=== PATIENT | male | born 1930 | race Caucasian/White ===

== ENCOUNTER 2017-01-22 13:24 | Inpatient (IN) ==
--- NOTE | 2017-01-22 14:07 | Diag Imaging Result Doc PS360 ---
EXAM: CT HEAD W/O CONTRAST HISTORY: new onset psychosis TECHNIQUE: CT brain without contrast. Dose reduction protocol. COMPARISON: None. FINDINGS: No parenchymal hemorrhage. No epidural or subdural hematoma. No subarachnoid hemorrhage. No mass identified on this noncontrasted exam. No hydrocephalus. There is diffuse atrophy with mild chronic microvascular ischemic changes. No sinus opacification. IMPRESSION: 1.No hemorrhage 2.Atrophy with chronic microvascular ischemic changes Electronically signed by Donaldo Chan 01/22/2017 2:05 PM
--- NOTE | 2017-01-22 14:15 | Diag Imaging Result Doc PS360 ---
EXAM: CHEST-2 VIEWS HISTORY: AMS TECHNIQUE: PA and lateral chest COMMENT: The inspiration is suboptimal. There is no evidence of acute cardiac or pulmonary disease and no previous studies are available for comparison. There is a pacemaker on the left. The heart size is at the upper limits of normal. IMPRESSION: Borderline cardiomegaly. No evidence of acute disease. Electronically signed by Zhou Valles 01/22/2017 2:13 PM
[2017-01-22 16:52] LABS: MANUAL DIFF NEEDED? NO
[2017-01-22 16:53] LABS: BASO% 0.2 % (0.0-0.8); EOS# 0.08 X1000 (0.0-0.7); EOS% 0.9 % (0.0-10.0); HEMATOCRIT 42.4 % (42.0-52.0); HEMOGLOBIN 14.2 g/dL (14.0-18.0); IMM GRAN# 0.04 X1000 (0.0-0.04); IMM GRAN% 0.4 % (0.0-0.5); LYMPH# 1.39 X1000 (1.2-3.4); LYMPH% 14.8 % (20.5-51.1); MCH 31.6 PG (27-31); MCHC 33.5 g/dL (33-37); MCV 94.2 FL (81-99); MONO# 0.82 X1000 (0.11-0.59); MONO% 8.7 % (1.7-9.3); MPV 11.5 FL (7.4-10.4); PLT 181 X1000 (130-400)
[2017-01-22 17:11] LABS: ALBUMIN 3.6 g/dL (3.5-5.0); CALCIUM 9.1 mg/dL (8.8-10.2); MAGNESIUM 2.2 mg/dL (1.5-2.7); TOTAL BILIRUBIN 2.08 mg/dL (0.20-1.00); TOTAL PROTEIN 7.3 g/dL (6.3-8.3)
[2017-01-22 17:30] LABS: FREE T4 1.27 ng/dL (0.93-1.70)
--- NOTE | 2017-01-22 17:57 | PROVIDER DOCUMENTATION ---
This chart was entered by Ayush Martinez Scribe, acting as scribe for Courtney De La Torre MD. HPI-General Adult - General Source: patient - History of Present Illness -Gen Adult Nature of Presenting Problems: patient is a 86 y /o M that presents to the ER for evaluation. reports patient having dementia, gradual decline past two years, Worse recently. She is having issues with him getting worse and unable to care for himself. No recent infection, no anger outburst. Just slowly forgetting things people. Last night he slept in floor Location of Pain/Injury: reports: none Pain Radiation: reports: no radiation Quality of Pain: reports: none Severity: reports: moderate Onset/Duration: reports: gradual, other (2 years) Timing: reports: still present, getting worse (past few months, especially last day) Context/Activities at Onset: reports: none Modifying Factors: improves with: nothing Associated Symptoms: denies: cough, diarrhea, fever/chills, genitourinary problems, nausea, shortness of breath, vomiting Similar Symptoms Previously?: No Recently seen or treated by another doctor?: No <Courtney De La Torre - Last Filed: 01/22/17 17:56> - General Source: patient, family <Franc Timmons - Last Filed: 01/22/17 18:51> - General Chief Complaint: Psych Stated Complaint: INCREASED DEMENTIA Time Seen by Provider: 01/22/17 16:52 Allergies/Adverse Reactions: Patient Allergies Allergy/AdvReac Type Severity Reaction Status Date / Time No Known Allergies Allergy Verified 11/18/16 20:24 Home Medications: Home Medication List Medication Instructions Recorded Confirmed Last Taken Type Dabigatran Etexilate Mesylate 150 mg PO DAILY 11/18/16 11/18/16 11/18/16 08:00 History [Pradaxa] Dabigatran Etexilate Mesylate 150 mg PO DAILY 11/18/16 11/18/16 11/18/16 08:00 History [Pradaxa] Furosemide [Lasix] 40 mg PO DAILY 11/18/16 11/18/16 11/18/16 08:00 History Potassium Chloride [Klor-Con 10] 10 meq PO DAILY 11/18/16 11/18/16 11/18/16 08: 00 History Review of Systems - Adult - REVIEW OF SYSTEMS - ADULT ROS:: ROS per family Constitutional: denies: chills, fever Eyes: reports: no symptoms reported Ears, Nose, Mouth & Throat: reports: no symptoms reported Cardiovascular: denies: chest pain, orthopnea, palpitations Respiratory: denies: cough, shortness of breath, wheezing Gastrointestinal: denies: abdominal pain, diarrhea, nausea, vomiting Genitourinary: reports: no symptoms reported Musculoskeletal: denies: back pain, joint pain, neck pain Integumentary: reports: no symptoms reported Neurological: reports: other (confusion). denies: headache/migraines, paresthesia Psychiatric: reports: no symptoms reported Endocrine: reports: no symptoms reported Hematologic/Lymphatic: reports: no symptoms reported Allergic/Immunologic: reports: no symptoms reported All Other Systems: Reviewed and Negative <Courtney De La Torre - Last Filed: 01/22/17 17:56> - REVIEW OF SYSTEMS - ADULT Constitutional: denies: fever <Franc Timmons - Last Filed: 01/22/17 18:51> Past History - Adult - PAST MEDICAL HISTORY-ADULT Review of Records: reports: Old Records Reviewed, Nursing Assessment Review, Medications Reviewed Cardiovascular: reports: HTN, pacemaker Neurological: reports: dementia - PRIOR SURGERIES/PROCEDURES Surgical/Procedure History: reports: pacemaker - IMMUNIZATION STATUS Childhood Immunizations: See Nurse Assessment Flu Vaccine: See Nurse Assessment - FAMILY HISTORY Family History: reviewed, not pertinent - SOCIAL HISTORY Smoking: quit greater than 1 year, cigarettes Living Situation: family <Courtney De La Torre - Last Filed: 01/22/17 17:56> - PAST MEDICAL HISTORY-ADULT Review of Records: reports: Old Records Reviewed, Nursing Assessment Review, Medications Reviewed, Social history reviewed & non-contributory. <Franc Timmons - Last Filed: 01/22/17 18:51> Physical Exam-General - PHYSICAL EXAM-ADULT Initial Vital Signs Reviewed: Yes - CONSTITUTIONAL General Appearance: alert, no apparent distress - EYES Eyes: PERRL/EOMI, pink conjunctivae - HEAD, EARS, NOSE, MOUTH & THROAT HENMT: normocephalic/atraumatic, moist mucous membranes, normal ENT inspection - NECK Neck: full range of motion, normal inspection - RESPIRATORY Respiratory: lungs clear, normal breath sounds, no respiratory distress, no accessory muscle use - CARDIOVASCULAR Cardiovascular: regular rate, rhythm, no JVD, no murmur - GASTROINTESTINAL (ABDOMEN) Abdominal Exam: normal bowel sounds, non tender, soft - MUSCULOSKELETAL Extremity: normal range of motion, no calf tenderness, pelvis stable - SKIN Integumentary: normal color, warm/dry - NEUROLOGIC Neurologic: grossly normal, no motor/sensory deficits - PSYCHIATRIC Psych/Mental Status: other (oriented to person). negative: anxious <Courtney De La Torre - Last Filed: 01/22/17 17:56> - PHYSICAL EXAM-ADULT Initial Vital Signs Reviewed: Yes - CONSTITUTIONAL General Appearance: appears well, alert, no apparent distress <Franc Timmons - Last Filed: 01/22/17 18:51> Progress - PLAN OF CARE/RESULTS Progress/Plan/Lab Results: Vital Signs - 8 hr 01/22/17 13:44 Temperature 97.7 F Pulse Rate 74 Respiratory Rate 16 Blood Pressure 91/56 O2 Sat by Pulse Oximetry 100 Laboratory Results - last 24 hr 01/22/17 16:36 WBC 9.38 RBC 4.50 L Hgb 14.2 Hct 42.4 MCV 94.2 MCH 31.6 H MCHC 33.5 RDW Std Deviation 13.7 Plt Count 181 MPV 11.5 H Immature Gran % (Auto) 0.4 Neut % (Auto) 75.0 Lymph % (Auto) 14.8 L [place] % (Auto) 8.7 Eos % (Auto) 0.9 Baso % (Auto) 0.2 Immature Gran # (Auto) 0.04 Neut # (Auto) 7.03 H Lymph # (Auto) 1.39 [place] # (Auto) 0.82 H Eos # (Auto) 0.08 Baso # (Auto) 0.02 Orders Category Date Time Status CHEST-2 VIEWS [RAD] Stat Exams 01/22/17 13:[address] HEAD W/O CONTRAST [CT] Stat Exams 01/22/17 13:37 Completed CBC WITH ELECTRONIC DIFF [HEME] Stat Lab 01/22/17 16:36 Completed COMPREHENSIVE METABOLIC PANEL [CHEM] Stat Lab 01/22/17 16:36 Received FOLATE Stat Lab 01/22/17 16:36 Received FREE T4 Stat Lab 01/22/17 16:36 Received MAGNESIUM [CHEM] Stat Lab 01/22/17 16:36 Received RPR [SERO] Stat Lab 01/22/17 16:36 Received TSH Stat Lab 01/22/17 16:36 Received URINALYSIS W/POSS RFLX CULT-1 [URINALYSIS] Stat Lab 01/22/17 13:36 Uncollected VITAMIN B12 Stat Lab 01/22/17 16:36 Received EKG [EKG] Stat Ther 01/22/17 13:36 Ordered Result Diagrams: 01/22/17 16:36 01/22/17 16:36 - PSYCHIATRIC Medically clear for psych eval and/or transfer to [facility] Yes <Courtney De La Torre - Last Filed: 01/22/17 17:56> - PLAN OF CARE/RESULTS Progress/Plan/Lab Results: Vital Signs - 8 hr 01/22/17 13:44 Temperature 97.7 F Pulse Rate 74 Respiratory Rate 16 Blood Pressure 91/56 O2 Sat by Pulse Oximetry 100 Laboratory Results - last 24 hr 01/22/17 01/22/17 01/22/17 16:36 16:36 16:36 WBC 9.38 RBC 4.50 L Hgb 14.2 Hct 42.4 MCV 94.2 MCH 31.6 H MCHC 33.5 RDW Std Deviation 13.7 Plt Count 181 MPV 11.5 H Immature Gran % (Auto) 0.4 Neut % (Auto) 75.0 Lymph % (Auto) 14.8 L [place] % (Auto) 8.7 Eos % (Auto) 0.9 Baso % (Auto) 0.2 Immature Gran # (Auto) 0.04 Neut # (Auto) 7.03 H Lymph # (Auto) 1.39 [place] # (Auto) 0.82 H Eos # (Auto) 0.08 Baso # (Auto) 0.02 Sodium 141 Potassium 4.0 Chloride 102 Carbon Dioxide 27 Anion Gap 12 BUN 24 H Creatinine 1.4 H Estimated GFR/1.73 m2 48 BUN/Creatinine Ratio 17 Glucose 110 H Calculated Osmolality 286 Calcium 9.1 Magnesium 2.2 Total Bilirubin 2.08 H AST 26 ALT 16 Alkaline Phosphatase 107 Total Protein 7.3 Albumin 3.6 Globulin 3.7 Albumin/Globulin Ratio 1.0 Vitamin B12 Folate 9.8 TSH Free T4 Urine Source Urine Color Urine Turbidity Urine pH Ur Specific [place] Urine Protein Ur Glucose (Stick) Ur Ketones (Stick) Urine Blood Urine Nitrite Urine Bilirubin Urobilinogen Dipstick Urine Leukocytes Urine WBC (Auto) Urine RBC (Auto) U Epithel Cells (Auto) Urine Bacteria (Auto) RPR 01/22/17 01/22/17 01/22/17 16:36 16:36 17:42 WBC RBC Hgb Hct MCV MCH MCHC RDW Std Deviation Plt Count MPV Immature Gran % (Auto) Neut % (Auto) Lymph % (Auto) [place] % (Auto) Eos % (Auto) Baso % (Auto) Immature Gran # (Auto) Neut # (Auto) Lymph # (Auto) [place] # (Auto) Eos # (Auto) Baso # (Auto) Sodium Potassium Chloride Carbon Dioxide Anion Gap BUN Creatinine Estimated GFR/1.73 m2 BUN/Creatinine Ratio Glucose Calculated Osmolality Calcium Magnesium Total Bilirubin AST ALT Alkaline Phosphatase Total Protein Albumin Globulin Albumin/Globulin Ratio Vitamin B12 324 Folate TSH 1.81 Free T4 1.27 Urine Source CLEAN CATCH Urine Color YELLOW Urine Turbidity HAZY Urine pH 8.5 Ur Specific [place] 1.019 Urine Protein 300 A Ur Glucose (Stick) NEGATIVE Ur Ketones (Stick) NEGATIVE Urine Blood MODERATE A Urine Nitrite NEGATIVE Urine Bilirubin NEGATIVE Urobilinogen Dipstick 3 A Urine Leukocytes LARGE A Urine WBC (Auto) TNTC A Urine RBC (Auto) TNTC A U Epithel Cells (Auto) <10 Urine Bacteria (Auto) 4+ RPR NON-REACTIVE Orders Category Date Time Status CHEST-2 VIEWS [RAD] Stat Exams 01/22/17 13:[address] HEAD W/O CONTRAST [CT] Stat Exams 01/22/17 13:37 Completed CBC WITH ELECTRONIC DIFF [HEME] Stat Lab 01/22/17 16:36 Completed COMPREHENSIVE METABOLIC PANEL [CHEM] Stat Lab 01/22/17 16:36 Completed FOLATE Stat Lab 01/22/17 16:36 Completed FREE T4 Stat Lab 01/22/17 16:36 Completed MAGNESIUM [CHEM] Stat Lab 01/22/17 16:36 Completed RPR [SERO] Stat Lab 01/22/17 16:36 Completed TSH Stat Lab 01/22/17 16:36 Completed URINALYSIS W/POSS RFLX CULT-1 [URINALYSIS] Stat Lab 01/22/17 17:42 Completed VITAMIN B12 Stat Lab 01/22/17 16:36 Completed 0.9% Sodium Chloride Inj [Ns] 1,000 ml Med 01/22/17 18:44 Active IV 999 mls/hr CefTRIAXONE [Rocephin] 1 gm Med 01/22/17 18:44 Active 0.9% Sodium Chloride Inj [Ns] 50 ml IV NOW CephALEXIN [Keflex] Med 01/22/17 18:38 Discontinued 500 mg PO NOW ONE EKG [EKG] Stat Ther 01/22/17 13:36 Ordered Result Diagrams: 01/22/17 16:36 01/22/17 16:36 - CONSULTS/PCP/HOSPITALIST Notification #1 *Consult/PCP/Hospitalist*: Dr Domingo Time Discussed: 18:50 Consult Disposition: Will see in ED, Admit <Franc Timmons - Last Filed: 01/22/17 18:51> Departure <Courtney De La Torre - Last Filed: 01/22/17 17:56> - Departure Date of Disposition Decision: 01/22/17 Time of Disposition Decision: 18:49 Certified Medical Emergency: Emergent - Critical Care Note This patient required my direct & personal management of CC.: No <Franc Timmons - Last Filed: 01/22/17 18:51> - Departure DIAGNOSIS: UTI (urinary tract infection) Qualifiers: Urinary tract infection type: site unspecified Hematuria presence: with hematuria Qualified Code(s): N39.0 - Urinary tract infection, site not specified ; R31.9 - Hematuria, unspecified Disposition: ADMITTED INPATIENT 09 Condition: Fair Referrals and Follow-Ups: Toi Alejandro MD [Primary Care Provider] - Attestation - Physician/ ASHTYN Attestation The physician spent face to face time with patient:: Yes Advanced Practice Provider documentation review:: Supervising physician onsite and consulted in the evaluation and care of this patient. The physician did have a face to face encounter with the patient. <Courtney De La Torre - Last Filed: 01/22/17 17:56> - Physician/ ASHTYN Attestation Patient care was provided by Advanced Practice Provider:: No The physician spent face to face time with patient:: Yes Advanced Practice Provider documentation review:: Supervising physician onsite and consulted in the evaluation and care of this patient. The physician did have a face to face encounter with the patient. <Franc Timmons - Last Filed: 01/22/17 18:51> This chart was documented by the indicated scribe, (Ayush Martinez, Scribe) and accurately reflects the services I performed and decisions made by me, Courtney De La Torre MD, as attested by the provider's signature.
[2017-01-22 18:06] LABS: URINE MICRO REVIEW NEEDED? NO; URINE SOURCE CLEAN CATCH
[2017-01-22 18:18] LABS: BILIRUBIN URINE NEGATIVE (NEGATIVE); BLOOD URINE MODERATE (NEGATIVE); COLOR YELLOW; GLUCOSE URINE NEGATIVE (NEGATIVE); LEUKOCYTES URINE LARGE (NEGATIVE); NITRITE URINE NEGATIVE (NEGATIVE); PH URINE 8.5; PROTEIN URINE 300 mg/dL (NEGATIVE); SP GRAVITY URINE 1.019; TURBIDITY URINE HAZY (CLEAR); UROBILINOGEN URINE 3 mg/dL (NORMAL)
[2017-01-22 18:20] LABS: UR EPITHELIAL CELLS <10 /HPF (<10); URINE BACTERIA 4+ /HPF; URINE CULTURE NEEDED? YES; URINE RBC TNTC /HPF (<10); URINE WBC TNTC /HPF (<10)
[2017-01-22] MEDS ORDERED: KEFLEX PO ONE (18:38)
[2017-01-22] MEDS ORDERED: NS 1,000 ML IV ONE (18:44)
[2017-01-22] MEDS ORDERED: ROCEPHIN 1 GM in NS 50 ML IV ONE (18:44)
[2017-01-22] MEDS: COREG PO SCH (22:15)
[2017-01-22] MEDS: PRADAXA PO SCH (22:15)
--- NOTE | 2017-01-22 23:21 | HISTORY AND PHYSICAL ---
CHIEF COMPLAINT: Weak and unable to walk, increased confusion. PRESENT ILLNESS: Mr. Porter is an 86-year-old gentleman followed by Dr. Toi Alejandro for multiple medical problems, including chronic atrial fibrillation and dementia. He was brought to the emergency room by his because he was unable to get up off the floor. Late yesterday he spent the day in a recliner and when he attempted to get up to come to bed, he became very weak and slowly lowered himself to the floor with no apparent injury. She was unable to get him up and he spent the night on the floor. This morning, he was still unable to get up and she had an ambulance bring him to the emergency room. Evaluation here has shown relatively unremarkable physical examination except for confusion and pedal edema. His laboratory is relatively unremarkable except for a urinalysis with too numerous to count white blood cells and 4+ bacteria. His says that [facility] sent a urine culture on Sunday and indeed in the computer there is a culture with 10,000 to 20,000 colonies of Proteus sensitive to several antibiotics including cephalosporins. He has already been given a dose of intravenous Rocephin here in the emergency room. PAST MEDICAL HISTORY: Is somewhat sketchy. His says he is followed at the [facility], but is unable to name his paper bundler. He apparently has a pacemaker and is on Pradaxa for atrial fibrillation. She is uncertain about other previous operations. She thinks he has tried medication for memory previously and these were ineffective. FAMILY HISTORY: Noncontributory. SOCIAL HISTORY: He is and lives with his . 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 He does not use alcohol or tobacco. REVIEW OF SYSTEMS: General: Obtained from his . He has had no recent fever or chills. No nausea or vomiting. His appetite has been reduced recently. HEENT examination: He denies any difficulty with vision or hearing, but seems unable to count fingers at 3 feet. He does understand questions and answer to the best of his ability and seems to understand questions. Respiratory: No shortness of breath, cough, sputum production. Cardiovascular: No recent chest pain, palpitations, syncope. No clear history of congestive heart failure or ischemic heart disease. GI: His appetite has been pretty good until several days ago. He has had no nausea, vomiting or diarrhea. He is occasionally constipated. No bright red blood per rectum or melena. : is unaware of any urinary complaints. He has occasional urinary incontinence at home. Musculoskeletal: No history of arthritis. He was walking, but somewhat unsteady on his feet until day before yesterday when he seemed very weak and preferred to stay in a chair. Neurologic: He was diagnosed with dementia nearly 2 years ago, but seems to have had some memory problems prior to that time. His denies any previous strokes or seizures. Endocrine: No history of diabetes or thyroid disease. PHYSICAL EXAMINATION: VITAL SIGNS: Temperature is 97.7 degrees, blood pressure 91/56, pulse rate 63, O2 saturation 100% on room air, respiratory rate 16. GENERAL APPEARANCE: Alert, pleasant, talkative, but confused elderly gentleman who is well groomed lying on a stretcher. SKIN: Warm, pink, and dry. HEENT: Pupils equal, round, reactive to light. Extraocular movements intact. Vision is questionable ability to count fingers at 3 feet. NECK: Supple. No adenopathy, JVD, thyromegaly or bruits. LUNGS: Clear to auscultation anteriorly and posteriorly. CARDIOVASCULAR: Somewhat distant S1-S2, but it is entirely regular, rate of approximately 70. I do not appreciate any murmurs or gallops. ABDOMEN: Mildly obese, soft and nontender, with active bowel sounds. No guarding or rebound tenderness present. EXTREMITIES: There is moderate pitting edema to mid calf bilaterally. His feet and toes are somewhat cool, but pink with slightly delayed capillary refill. I am not palpating any pedal pulses. There are numerous small superficial varicose veins on both ankles. The toenails are thickened, but reasonably well trimmed. NEUROLOGIC EXAMINATION: He is oriented to name, but not to the place or the date. He is able to recognize his and state her name. He is unable to name recent presidents. Neurologic exam otherwise is nonfocal with no facial asymmetry, intact pupillary reflexes and he moves all extremities on command. DATABASE: White blood count 9400, hemoglobin 14.2, hematocrit 42.4%, platelet count is normal. Electrolytes were normal. BUN 24, creatinine 1.4, glucose 110, bilirubin 2.1, vitamin B12, folate, TSH and free T4, RPR all normal or nonreactive. Urinalysis shows moderate protein, too numerous to count white blood cells, and red blood cells and 4+ bacteria. Chest x-ray shows borderline cardiomegaly. Head CT is chronic ischemic microvascular changes, otherwise unremarkable. ASSESSMENT: 1. Acute decompensation of chronic Alzheimer's dementia possibly due to #2. 2. Acute cystitis, Proteus cultured last week, but as yet untreated. 3. History of atrial fibrillation and a pacemaker, now with paced rhythm, rate of 70 on EKG. TREATMENT PLAN: He has been given a dose of intravenous ceftriaxone and will be continued on this 1 g daily. He has received an IV fluid bolus in the emergency room and as he seems somewhat fluid overloaded, will avoid further IV fluids unless his blood pressure drops further. Would probably benefit from deon-psych rehab. Need to keep him 1 or 2 nights to stabilize him medically. Dr. Alejandro should be available tomorrow to assume responsibility for his care. cc: Maverick Domingo MD
[2017-01-23] MEDS: PRADAXA PO SCH (09:15)
[2017-01-23] MEDS: COREG PO SCH (09:16)
[2017-01-23] MEDS ORDERED: CALMOSEPTINE OINTMENT TOP PRN (16:04)
[2017-01-23] MEDS: SEROQUEL PO SCH ×2 (17:59→21:47)
[2017-01-23] MEDS: ROCEPHIN 1 GM in NS 50 ML IV SCH (20:26)
[2017-01-24] MEDS: SEROQUEL PO SCH ×2 (12:11→23:18)
--- NOTE | 2017-01-24 13:20 | PROGRESS NOTE ---
DATE: 01/24/2017 SUBJECTIVE: He had a better night. He is a little bit lethargic. He was sitting up and ready to eat some lunch. He looked comfortable, pleasant. He is oriented to person. I think he knows he is in the hospital when reminded. OBJECTIVE: Vital Signs: Temp 98.2 degrees, pulse 50, respirations 16, blood pressure 92/69. Blood pressure range has been 91-152/56-106. Lungs: Clear in all lung troy. He has no trouble breathing. No sign of wheezing. Heart: See no pedal edema. Appears to have regular rhythm and rate. LABS: Review of his lab from the - again pretty unremarkable, except for urinalysis which showed 4+ bacteria and too numerous to count white blood cells. ASSESSMENT AND PLAN: 1. I am going to continue his antibiotics for his urinary tract infection; that is Rocephin 1 g every 24 hours. 2. Agitation, behavior disturbance with his dementia. So, I started him on Seroquel 50 mg twice a day, and I may see if I can cut that down to 25 twice a day. I stopped his anticoagulant and I stopped his blood pressure medicines to see if this would improve. We are going to do physical therapy to see if we can get him stronger; hopefully we can get him home before the weekend. If he is not able to walk, we are going to have to pursue rehabilitation residential placement. cc: Toi Alejandro MD
[2017-01-24] MEDS: ROCEPHIN 1 GM in NS 50 ML IV SCH (22:37)
--- NOTE | 2017-01-25 03:24 | ED EKG INTERP ---
This chart was entered by Genesis Thompson Scribe, acting as scribe for Franc Timmons MD. EKG Interpretation - EKG Time of EKG reading by physician:: 19:39 EKG Read and Signed by:: Franc Timmons EKG Interpretation (*Must complete 3 of following elements*): Normal Rate: 75 Rhythm: Ventricular paced Rhythm Comments: Abnormal ECG Attestation - Physician/ ASHTYN Attestation Patient care was provided by Advanced Practice Provider:: No The physician spent face to face time with patient:: Yes Advanced Practice Provider documentation review:: Supervising physician onsite and consulted in the evaluation and care of this patient. The physician did have a face to face encounter with the patient. This chart was documented by the indicated scribe, (Genesis Thompson Scribe) and accurately reflects the services I performed and decisions made by me, Franc Timmons MD, as attested by the provider's signature.
[2017-01-25] MEDS: SEROQUEL PO SCH ×2 (09:05→21:10)
--- NOTE | 2017-01-25 10:18 | PROGRESS NOTE ---
DATE: 01/25/2017 SUBJECTIVE: He is trying to eat his breakfast. He is awake. I think he is oriented to person. I am not sure if he knows he is in the hospital or what day or time it is, but looks comfortable. Breathing comfortably at this time. PHYSICAL EXAMINATION: Vital Signs: Temp afebrile at 97.9 degrees, pulse 79, respirations 20, blood pressure 126/87. Neck: Nondistended neck veins. Lungs: Clear anterolateral. Cardiovascular: Regular rate without murmur or S3. Abdomen: Soft. Skin: Warm and dry. LABORATORY DATA: Urine output 1200 mL. White count 9380, hematocrit 42, platelet count 181,000. Chemistries: Reviewed from the . CBC was reviewed from as well. ASSESSMENT AND PLAN: Treating her for a urinary tract infection, metabolic encephalopathy, and altered mental status. I have adjusted some of his medications and started him on Seroquel, originally started 50 mg twice a day. I have it down to 25. We are going to continue physical therapy to see if we can make some progress. I think we will try to get him home again. But he needs to be able to ambulate, and I need him to be able to sleep at night and not get as much agitation. cc: Toi Alejandro MD
[2017-01-25] MEDS ORDERED: CALMOSEPTINE OINTMENT TOP PRN (15:32)
[2017-01-25] MEDS: ROCEPHIN 1 GM in NS 50 ML IV SCH (21:10)
[2017-01-25 23:34] LABS: URINE MICRO REVIEW NEEDED? NO; URINE SOURCE CATH
[2017-01-25 23:40] LABS: BILIRUBIN URINE NEGATIVE (NEGATIVE); BLOOD URINE NEGATIVE (NEGATIVE); COLOR YELLOW; GLUCOSE URINE NEGATIVE (NEGATIVE); LEUKOCYTES URINE MODERATE (NEGATIVE); NITRITE URINE NEGATIVE (NEGATIVE); PH URINE 5.5; PROTEIN URINE TRACE mg/dL (NEGATIVE); SP GRAVITY URINE 1.018; TURBIDITY URINE CLEAR (CLEAR); UR EPITHELIAL CELLS <10 /HPF (<10); URINE BACTERIA NEGATIVE /HPF; URINE CULTURE NEEDED? YES; URINE RBC <10 /HPF (<10); URINE WBC <10 /HPF (<10); UROBILINOGEN URINE 3 mg/dL (NORMAL)
[2017-01-26] MEDS: SEROQUEL PO SCH ×2 (09:28→21:39)
--- NOTE | 2017-01-26 13:59 | PROGRESS NOTE ---
DATE: 01/26/2017 SUBJECTIVE: This is a 86-year-old. He is awake and alert, anxious to eat his breakfast. Seems to be comfortable, very friendly and cooperative. OBJECTIVE: Vital signs: Temperature 97.2 degrees, pulse 78, respirations 18, blood pressure 132/87. Lungs: Are clear in all lung troy. Cardiovascular: Regular rhythm, rate without murmur or S3. Abdomen: Soft. Skin: Is warm and dry. Urine output unremarkable. LAB: Reviewed from looks good. ASSESSMENT AND PLAN: Urinary tract infection, metabolic encephalopathy, underlying dementia doing much better. Started him on Seroquel originally 50 mg, I went down to 25 mg daily. He has some ulcers on the scrotum that Nati William is treating. Continue ceftriaxone for urinary tract infection and we put a Childers catheter in. Appears that the Seroquel 25 mg b.i.d. may be working well. He has a little more lethargy. We will check some blood work again in the morning. cc: Toi Alejandro MD
[2017-01-26] MEDS: ROCEPHIN 1 GM in NS 50 ML IV SCH (21:39)
[2017-01-27 06:36] LABS: AGAP 11; BUN 15 mg/dL (8-22); CALCIUM 8.5 mg/dL (8.8-10.2); CHLORIDE 102 mmol/L (98-107); COSMO 278; POTASSIUM 4.3 mmol/L (3.5-5.1); SODIUM 139 mmol/L (136-145); TCO2 26 mmol/L (25-35)
--- NOTE | 2017-01-27 09:53 | PROGRESS NOTE ---
DATE: 01/27/2017 SUBJECTIVE: Mr. Porter was sleeping, resting comfortably. Easy to arouse but went right back to sleep.Vital signs: Temperature 98.3 degrees, pulse 56, respirations 24, blood pressure 124/84. Pupils are equal, round. Lungs: Clear in all lung troy. Cardiovascular: Regular rhythm and rate without murmur or S3. Abdomen: Soft. Skin: Warm and dry. : Urine output 1.5 L, so good urine output. LAB: From the reviewed. Chemistries from today, sodium 139, potassium 4.3, chloride 102, BUN 15, creatinine 1.0. ASSESSMENT AND PLAN: 1. Metabolic encephalopathy, urinary tract infection overlying. Pretty profound dementia. We are going to cut the Seroquel. He only takes 25 at night. He is, it seems to be but he stays sleepy during the day. 2. Urinary tract infection. Appears to be resolving. 3. Eating well. 4. Have physical therapy continue to work on his strength and conditioning. Hopefully, we can get him home on Sunday. 5. He has some scrotal ulcers. Put a Childers catheter in to see if we can dry those out. Continue topical care for now and see if that will help. 6. Review of his orders. He is on ceftriaxone 1 g daily. I will change his Seroquel to just 25 mg at night. cc: Toi Alejandro MD
[2017-01-27] MEDS: SEROQUEL PO SCH ×2 (11:33→22:34)
[2017-01-27] MEDS: ROCEPHIN 1 GM in NS 50 ML IV SCH (22:34)
--- NOTE | 2017-01-28 13:26 | PROGRESS NOTE ---
DATE: 01/28/2017 SUBJECTIVE: Mr. Porter has had an uneventful night. Did well. He is eating some. still wants to try and get him in to [facility]. She needs some help. PHYSICAL EXAMINATION: Vitals: Temp 97.6 degrees, pulse 72 respirations 12, blood pressure 124/76. Lungs: Clear in all lung troy. Cardiovascular: Regular rhythm and rate without murmur. GI: Abdomen is soft. Skin: Warm and dry. : Urine output is 2 L. LAB: Reviewed from the and electrolytes from and unremarkable. ASSESSMENT AND PLAN: 1. Metabolic encephalopathy, urinary tract infection, and an underlying dementia. He is doing better. We have tapered down, so he is taking Seroquel 25 mg at night and that seems to help him at nighttime. 1. Urinary tract infection, resolving. 2. Nutrition is good. 3. Continue physical therapy for strength. 4. Some scrotal ulcers and skin irritation. We put a Childers catheter in to hep try to keep it dry. We will look for [facility], see if we can discharge. He should be ready tomorrow or Sunday. cc: Toi Alejandro MD
[2017-01-28] MEDS: SEROQUEL PO SCH (22:10)
[2017-01-28] MEDS: ROCEPHIN 1 GM in NS 50 ML IV SCH (22:10)
--- NOTE | 2017-01-29 15:16 | PROGRESS NOTE ---
DATE: 01/29/2017 SUBJECTIVE: Mr. Porter looks good. Awake. He is oriented to person, not sure he knows he is in the hospital, but he seems to have good attitude and is eating well. PHYSICAL EXAMINATION: Vital signs: Temperature 98 degrees, pulse 74, respirations 18, blood pressure 117/65. HEENT: Pupils are equal. CVP less than 6 cm. Lungs: Clear in all lung troy. Cardiovascular: Regular rate without murmurs or S3. Good urine output. He has a Childers catheter in. ASSESSMENT AND PLAN: 1. Urinary tract infection which is resolving. 2. Nutrition is good, good p.o. intake. 3. He would benefit from physical therapy for strength and ambulation. 4. Scrotal ulcers with irritation. Put a Childers catheter and continue topical care. 5. Dementia and he will need some help so we are trying to find long term arrangement. Review of his orders: He is down to just 25 mg Seroquel at bedtime, I believe we can stop the Rocephin. cc: Toi Alejandro MD
[2017-01-29] MEDS: SEROQUEL PO SCH (21:46)
[2017-01-30] MEDS: SEROQUEL PO SCH (21:13)
--- NOTE | 2017-01-31 12:33 | PROGRESS NOTE ---
DATE: 01/31/2017 SUBJECTIVE: Mr. Porter is awake and alert. His sores in the groin seem to be healing. OBJECTIVE: Temperature is 97.6 degrees, pulse 75, respirations 16, blood pressure 130/81. Pupils are equal. CVP less than 6 cm. Lungs are clear in all lung troy. Cardiovascular: Regular rhythm and rate without murmur or S3. Urine output over 4 L. LABORATORY DATA: Reviewed. Chemistries back from 01/27/2017 and CBC from 01/22/2017. He is having trouble with his balance, walking, weak and deconditioning. ASSESSMENT AND PLAN: 1. Urinary tract infection which is resolved. 2. Nutrition which is improving. Good p.o. intake. 3. Physical therapy. He needs work on his strength and his coordination and his ambulation. 4. Scrotal ulcers which are improving. We will discontinue his Childers catheter. 5. Dementia, aware, fairly stable. He is very cooperative, very pleasant. We are looking for jail placement. His will not be able to care for him, and he is just on Seroquel 25 mg at bedtime, so we will discontinue his Childers catheter. cc: Toi Alejandro MD
[2017-01-31] MEDS: SEROQUEL PO SCH (22:13)
[2017-02-01 08:19] VITALS: BP 116/75
--- NOTE | 2017-02-01 13:30 | DISCHARGE SUMMARY ---
ADMISSION DATE: 01/22/2017 DISCHARGE DATE: This is an 86-year-old who presented on 01/22/2017. Unable to walk with increased confusion, main complaint. He is my patient. Multiple medical problems, including chronic atrial fibrillation and dementia. Was brought to the emergency room because they were unable to get him off of the floor. He spent the day in the recliner. Attempted to get up out of bed, very weak, and lowered himself to the floor. No apparent injury, but increased confusion and appeared to have a urinary tract infection with 4+ bacteria. He had 10,000-20,000 colonies of Proteus sensitive to multiple antibiotics. Treated him, gave some fluids. He looked a little bit dry. He has a pacemaker, but he is on Pradaxa. We have stopped his Pradaxa and he showed steady improvement. Dementia has progressed, but he is pleasant, easy to work with, and we began physical therapy, which he improved. He is eating well, eating everything on his plate. [facility] he could go and be discharged. I started him on some Seroquel, which seems to help him at night, 25 mg at bedtime to taper to. [facility] he could go to the skilled nursing on 02/01/2017. cc: Toi Alejandro MD
== END 2017-02-01 17:04 ==
LOC: SUPCPDRO → ED 13:24 → 4N 21:13
PROVIDERS: ADMIT Emergency Medicine; ATTEND Emergency Medicine